=== PATIENT | female | born 1985 | race African-American/Black ===

== ENCOUNTER 2019-01-02 00:58 | Emergency (ER) | payer BC ==
[~2019-01-02] VITALS: Ht 167.6 cm; Wt 57.0 kg
[2019-01-02] MEDS ORDERED: LORAZEPAM 2 MG INJ IV STA (01:10)
[2019-01-02] MEDS ORDERED: SOD CHLORIDE 0.9% 1,000 ML IV STA (01:10)
[2019-01-02 01:11] VITALS: Ht 167.6 cm; Wt 57.0 kg
--- NOTE | 2019-01-02 01:24 | ERD ---
ER Documentation Chief Complaint Chief Complaint frequent episodes of seizures as reported by mom involving arms&legs HPI 33-year-old female who is being worked up for seizure disorder currently taking Keppra and Ativan. The patient has had multiple episodes of seizure-like activity today. The family describes it as twitching the last approximately 1-2 seconds with complete resolution. The patient has had EEGs as an outpatient. Working diagnosis is pseudoseizure versus seizure. Patient has compliance with medication regimen. ROS All systems reviewed and are negative except as per history of present illness. Allergies Allergies: Coded Allergies: No Known Allergy (Unverified , 01/02/19) FmHx Family History: No diabetes Physical Exam Vitals Vital Signs Date Temp Pulse Resp B/P (MAP) Pulse Ox O2 O2 Flow FiO2 Time Delivery Rate 01/02/19 98.4 81 20 120/77 100 Room Air 02:10 (91) 01/02/19 98.4 99 20 121/83 100 Room Air 01:24 (96) 01/02/19 98.4 96 20 121/83 100 01:11 (96) Physical Exam General: Patient with intermittent twitching but purposeful movements Head: Normocephalic, atraumatic. Eyes: Pupils equally reactive, EOM intact ENT: Moist mucous membranes Neck: Supple, no lymphadenopathy Respiratory: Lungs clear bilaterally, no distress Cardiovascular: RRR, no murmurs, rubs, or gallops Abdominal: Soft, non-tender, non-distended, no peritoneal signs : Deferred MSK: No edema, no unilateral swelling, 5/5 strength Neurologic: Limited exam but moving all 4 extremities Skin: No rash Psych: Normal mood Result Diagram: 01/02/1911401/02/19114 Results 24 hrs Laboratory Tests Test 01/02/19 01:15 01/02/19 01:32 White Blood Count 9.7 10^3/ul Red Blood Count 4.51 10^6/ul Hemoglobin 13.4 g/dl Hematocrit 38.3 % Mean Corpuscular Volume 84.9 fl Mean Corpuscular Hemoglobin 29.7 pg Mean Corpuscular Hemoglobin Concent 35.0 g/dl Red Cell Distribution Width 14.5 % Platelet Count 257 10^3/UL Mean Platelet Volume 11.4 fl Immature Granulocytes % 0.300 % Neutrophils % 61.1 % Lymphocytes % 28.4 % Monocytes % 8.4 % Eosinophils % 0.9 % Basophils % 0.9 % Nucleated Red Blood Cells % 0.0 /100WBC Immature Granulocytes # 0.030 10^3/ul Neutrophils # 5.9 10^3/ul Lymphocytes # 2.8 10^3/ul Monocytes # 0.8 10^3/ul Eosinophils # 0.1 10^3/ul Basophils # 0.1 10^3/ul Nucleated Red Blood Cells # 0.0 10^3/ul Sodium Level 138 mmol/L Potassium Level 3.6 mmol/L Chloride Level 102 mmol/L Carbon Dioxide Level 25 mmol/L Anion Gap 11 Blood Urea Nitrogen 9 mg/dl Creatinine 0.79 mg/dl Est Glomerular Filtrat Rate mL/min > 60 mL/min Glucose Level 104 mg/dl Calcium Level 9.6 mg/dl Serum HCG, Qualitative NEGATIVE Bedside Glucose 85 mg/dL Current Medications Medications Dose Sig/Mary Jane Start Time Status Last (Trade) Ordered Route PRN Stop Time Admin Dose Reason Admin Sodium 1,000 ml @ Q1H STAT 01/02/19 DC 01/02/19 Chloride 1,000 mls/hr IV 01:10 01:20 01/02/19 02:09 Lorazepam 1 mg ONCE STAT 01/02/19 DC 01/02/19 (Ativan) IV 01:10 01:20 01/02/19 01:12 Ketorolac 15 mg ONCE STAT 01/02/19 DC 01/02/19 Tromethamine IV 02:01 02:09 (Toradol) 01/02/19 02:02 Procedures/MDM LAB INTERPRETATION: I reviewed the laboratory testing and it shows [no evidence of acute process] MEDICAL DECISION MAKING: The patient was observed to have twitching in triage. Upon placement in the room the patient had another episode of twitching but she had purposeful movement of the right upper extremity and was conversing during this. It lasted approximately 1-2 seconds. The patient's activity is most consistent with likely pseudoseizure. Patient has had [employer] imaging if I do not believe repeat imaging of the brain is necessary. The patient frequently has these events approximately every other day. The patient's frequency has increased today therefore observation may be necessary however it is unclear if the patient will necessarily require inpatient hospitalization. I do not believe this is consis tent with status epilepticus and do not feel the patient warrants intubation. Benzodiazepine treatment appropriate. ER COURSE: * Seizure precautions initiated * Patient given Ativan * Patient had a mild headache that was treated with nonsteroidal anti- inflammatory. The patient is now calm, appropriate, ambulatory. * At this point the patient can be safely discharged home with close primary care and outpatient neurology follow-up CONSULTATION: [None] DISPOSITION PLAN: The patient does not have an identifiable emergent medical condition that warrants inpatient hospitalization at this time. The patient is deemed safe for discharge with outpatient follow-up. We discussed follow up with the patient's primary care doctor within 24 to 48 hours as needed. We also discussed return to the emergency room for worsening symptoms or worsening condition. Outpatient referral: Neurology Discharge Medications: Continue home medications Departure Diagnosis: Primary Impression: Pseudoseizures Additional Impression: Seizure disorder Condition: Stable CARLA CURRY MD Jan 02, 2019 01:24
[2019-01-02] MEDS ORDERED: KETOROLAC 15 MG INJ IV STA (02:01)
[2019-01-02] MEDS ORDERED: LEVE500T8 PO (02:57)
[2019-01-02] MEDS ORDERED: LORA1TAB PO (02:57)
[2019-01-02] MEDS ORDERED: VIT1TABL46 PO (02:57)
[2019-01-02] MEDS ORDERED: LACT1CAP56 PO (02:57)
[2019-01-02] MEDS ORDERED: CALC1CAP10 PO (02:57)
[2019-01-02 03:05] VITALS: BP 104/71; PULSE 80; RESP 18
== END 2019-01-02 03:07 | disposition home or self-care (01) ==
LOC: E/R 00:58
DX: F44.5 Conversion disorder with seizures or convulsions (principal)
CPT/HCPCS: 36415; 80048; 82962; 84703; 85025; 96374; 96375; 99284; J1885; J2060; J7030